=== PATIENT | female | born 2000 | race American Indian/Alaskan Native ===

== ENCOUNTER 2018-05-19 09:22 | Emergency (ER) | payer SELFPAY ==
[2018-05-19 09:52] VITALS: BP 101/59
[2018-05-19] MEDS ORDERED: DECADRON IV ONE (10:54)
--- NOTE | 2018-05-19 10:58 | Emergency Department Report ---
Blank Doc - Documentation Documentation: 17 yo female with a past medical history of strep pharyngitis in the past medical history of previous strep throat infections presents to the hospital complaining of sore throat since last night. She has voice changes and is spitting in a bag because it hurts to swallow. No complaints of difficulty breathing tightness. No fever reported. ENT exam: Patient has significant uvula and tonsillar edema with possible deviation of the uvula to the left No respiratory distress or stridor Labs, strep screen, CT with IV contrast of the neck ordered Mid-level to follow
[2018-05-19] MEDS ORDERED: TORADOL IV ONE (10:59)
[2018-05-19 11:25] LABS: Basophils % (Auto) 0.5 % (0.0-1.8); Eosinophils # (Auto) 0.2 K/mm3 (0.0-0.4); Hematocrit 36.9 % (30.3-42.9); Hemoglobin 12.5 gm/dl (10.1-14.3); Lymphocytes # (Auto) 1.7 K/mm3 (1.2-5.4); Lymphocytes % (Auto) 22.4 % (13.4-35.0); Mean Corpuscular HGB Conc 34 % (30-34); Mean Corpuscular Hemoglobin 30 pg (28-32); Mean Corpuscular Volume 87 fl (79-97); Monocytes # (Auto) 0.4 K/mm3 (0.0-0.8); Platelet Count 224 K/mm3 (140-440); Red Blood Count 4.22 M/mm3 (3.65-5.03); Red Cell Distribution Width 13.9 % (13.2-15.2)
[2018-05-19 11:38] LABS: BUN/Creatinine Ratio 40; Blood Urea Nitrogen 8 mg/dL (7-17); Hemolysis Index 25
--- NOTE | 2018-05-19 11:41 | Emergency Department Report ---
ED ENT HPI - General Chief complaint: Sore Throat Stated complaint: THROAT PAIN SOAR Time Seen by Provider: 05/19/18 10:41 Source: patient, family Mode of arrival: Ambulatory Limitations: No Limitations - History of Present Illness Initial comments: 17 yo female with a past medical history of strep pharyngitis in the past medical history of previous strep throat infections presents to the hospital complaining of sore throat since last night. She has voice changes and is spitting in a bag because it hurts to swallow. No complaints of difficulty breathing tightness. No fever reported. ENT exam: Patient has significant uvula and tonsillar edema with possible deviation of the uvula to the left No respiratory distress or stridor - Related Data Previous Rx's Medication Instructions Recorded Last Taken Type Amoxicillin/K Clav Tab [Augmentin 1 tab PO BID #20 tablet 02/24/16 Unknown Rx 875MG TAB] HYDROcodone/APAP 7.5-325 [[place]] 15 ml PO Q4HR PRN #120 oz 02/24/16 Unknown Rx Ibuprofen Oral Liqd [Motrin] 200 mg PO TID PRN #1 bottle 02/24/16 Unknown Rx Allergies Allergy/AdvReac Type Severity Reaction Status Date / Time No Known Allergies Allergy Verified 05/19/18 09:48 ED Dental HPI - General Chief complaint: Sore Throat Stated complaint: THROAT PAIN SOAR Time Seen by Provider: 05/19/18 10:41 Source: patient Mode of arrival: Ambulatory Limitations: No Limitations - Related Data Previous Rx's Medication Instructions Recorded Last Taken Type Amoxicillin/K Clav Tab [Augmentin 1 tab PO BID #20 tablet 02/24/16 Unknown Rx 875MG TAB] HYDROcodone/APAP 7.5-325 [[place]] 15 ml PO Q4HR PRN #120 oz 02/24/16 Unknown Rx Ibuprofen Oral Liqd [Motrin] 200 mg PO TID PRN #1 bottle 02/24/16 Unknown Rx Allergies Allergy/AdvReac Type Severity Reaction Status Date / Time No Known Allergies Allergy Verified 05/19/18 09:48 ED Review of Systems ROS: Stated complaint: THROAT PAIN SOAR Other details as noted in HPI ED Past Medical Hx - Past Medical History Additional medical history: Prior Tonsil pn 1 year ago - Surgical History Past Surgical History?: No - Social History Smoking Status: Never Smoker Substance Use Type: None - Medications Home Medications: Home Medications Medication Instructions Recorded Confirmed Last Taken Type Amoxicillin/K Clav Tab [Augmentin 1 tab PO BID #20 tablet 02/24/16 Unknown Rx 875MG TAB] HYDROcodone/APAP 7.5-325 [[place]] 15 ml PO Q4HR PRN #120 oz 02/24/16 Unknown Rx Ibuprofen Oral Liqd [Motrin] 200 mg PO TID PRN #1 bottle 02/24/16 Unknown Rx ED Physical Exam - General Limitations: No Limitations ED Course Vital Signs 05/19/18 09:48 Temperature 98.2 F Pulse Rate 63 Respiratory 18 Rate Blood Pressure 101/59 O2 Sat by Pulse 100 Oximetry ED Medical Decision Making - Lab Data Result diagrams: 05/19/18 11:15 05/19/18 11:15 Critical care attestation.: If time is entered above; I have spent that time in minutes in the direct care of this critically ill patient, excluding procedure time. ED Disposition Condition: Stable Referrals: PRIMARY CARE, [Primary Care Provider] - 3-5 Days
[2018-05-19] MEDS ORDERED: D50W (25GM) Vial IV ONE (11:44)
[2018-05-19] MEDS ORDERED: NACL 0.9% 1000 ML 1,000 ML IV ONE (11:44)
[2018-05-19 11:51] LABS: Calcium 5.1 mg/dL (8.4-10.2)
[2018-05-19] MEDS ORDERED: POTASSIUM CHLORIDE FEEDTUBE ONE (11:53)
[2018-05-19] MEDS ORDERED: UNASYN/NS 3 GM/100 ML 3 GM/100 ML BAG IV ONE (12:00)
[2018-05-19] MEDS ORDERED: D50W (25GM) Syringe IV NR (12:00)
[2018-05-19 12:18] LABS: Alanine Aminotransferase 10 units/L (7-56); Albumin 2.3 g/dL (3.9-5)
[2018-05-19 12:19] LABS: Bilirubin,Direct < 0.2 mg/dL (0-0.2)
[2018-05-19] MEDS ORDERED: MAGNESIUM SULFATE 2GM/50ML 2 GM/50 ML BAG IV ONE (12:34)
--- NOTE | 2018-05-19 12:55 | Cat Scan Report ---
FINAL REPORT EXAM: CT NECK W CON HISTORY: tonsillar and uvula swelling TECHNIQUE: CT of the neck was performed after the administration of intravenous contrast. Coronal and sagittal reconstructions were included. PRIORS: None. FINDINGS: Parapharyngeal spaces: Normal. Adenoids/tonsils: The adenoids and tonsils do not appear enlarged. Several small calcifications are seen within the adenoids. No tonsillar or peritonsillar abscess. There is thickening and edema of the uvula. Prevertebral soft tissues: No soft tissue swelling. Airway: Patent. Lymph nodes: No pathologically enlarged lymph nodes. Retropharynx: No abscess. Paranasal sinuses: There is a tiny right maxillary sinus mucous retention cyst. Parotid and submandibular glands: Normal attenuation. Thyroid gland: No nodules. Vasculature: Patent. Cervical spine: Intact. IMPRESSION: Edema of the uvula can be associated with allergies or may be idiopathic. No tonsillar or peritonsillar abscess.
[2018-05-19] MEDS ORDERED: POTASSIUM CHLORIDE PO ONE (13:00)
[2018-05-19 13:05] LABS: Bacteria,Urine 1+ /HPF (Negative); Bilirubin,Urine NEG (Negative); Blood,Urine NEG (Negative); Color,Urine Straw (Yellow); Protein,Urine <15 mg/dL mg/dL (Negative); Urobilinogen,Urine < 2.0 mg/dL (<2.0); WBC,Urine < 1.0 /HPF (0.0-6.0)
[2018-05-19 13:19] LABS: Alanine Aminotransferase 18 units/L (7-56); Albumin 4.6 g/dL (3.9-5); BUN/Creatinine Ratio 17; Blood Urea Nitrogen 12 mg/dL (7-17); Calcium 9.3 mg/dL (8.4-10.2); Hemolysis Index 3
--- NOTE | 2018-05-19 13:33 | Emergency Department Report ---
ED ENT HPI - General Chief complaint: Sore Throat Stated complaint: THROAT PAIN SOAR Time Seen by Provider: 05/19/18 10:41 Source: patient Mode of arrival: Ambulatory Limitations: No Limitations - History of Present Illness Initial comments: 17 yo female with a past medical history of strep pharyngitis in the past medical history of previous strep throat infections presents to the hospital complaining of sore throat since last night. She has voice changes and is spitting in a bag because it hurts to swallow. No complaints of difficulty breathing tightness. No fever reported. Pain rated of 7/10 intensity and worse with swallowing - Related Data Previous Rx's Medication Instructions Recorded Last Taken Type Amoxicillin/K Clav Tab [Augmentin 1 tab PO BID #20 tablet 02/24/16 Unknown Rx 875MG TAB] HYDROcodone/APAP 7.5-325 [[place]] 15 ml PO Q4HR PRN #120 oz 02/24/16 Unknown Rx Amoxicillin [Trimox CAP] 1,000 mg PO BID 10 Days capsule 05/19/18 Unknown Rx Ibuprofen Oral Liqd [Motrin Oral 400 mg PO TID PRN #1 bottle 05/19/18 Unknown Rx Liq 100 mg/5 ml] Prednisone [predniSONE 10 mg 10 mg PO .TAPER #1 tab.ds.pk 05/19/18 Unknown Rx (6-Day Pack, 21 Tabs)] diphenhydrAMINE [Benadryl CAP] 25 mg PO Q6HR PRN #20 capsule 05/19/18 Unknown Rx Allergies Allergy/AdvReac Type Severity Reaction Status Date / Time No Known Allergies Allergy Verified 05/19/18 09:48 ED Dental HPI - General Chief complaint: Sore Throat Stated complaint: THROAT PAIN SOAR Time Seen by Provider: 05/19/18 10:41 Source: patient Mode of arrival: Ambulatory Limitations: No Limitations - Related Data Previous Rx's Medication Instructions Recorded Last Taken Type Amoxicillin/K Clav Tab [Augmentin 1 tab PO BID #20 tablet 02/24/16 Unknown Rx 875MG TAB] HYDROcodone/APAP 7.5-325 [[place]] 15 ml PO Q4HR PRN #120 oz 02/24/16 Unknown Rx Amoxicillin [Trimox CAP] 1,000 mg PO BID 10 Days capsule 05/19/18 Unknown Rx Ibuprofen Oral Liqd [Motrin Oral 400 mg PO TID PRN #1 bottle 05/19/18 Unknown Rx Liq 100 mg/5 ml] Prednisone [predniSONE 10 mg 10 mg PO .TAPER #1 tab.ds.pk 05/19/18 Unknown Rx (6-Day Pack, 21 Tabs)] diphenhydrAMINE [Benadryl CAP] 25 mg PO Q6HR PRN #20 capsule 05/19/18 Unknown Rx Allergies Allergy/AdvReac Type Severity Reaction Status Date / Time No Known Allergies Allergy Verified 05/19/18 09:48 ED Review of Systems ROS: Stated complaint: THROAT PAIN SOAR Other details as noted in HPI Comment: All other systems reviewed and negative ED Past Medical Hx - Past Medical History Additional medical history: Prior Tonsil pn 1 year ago - Surgical History Past Surgical History?: No - Social History Smoking Status: Never Smoker Substance Use Type: None - Medications Home Medications: Home Medications Medication Instructions Recorded Confirmed Last Taken Type Amoxicillin/K Clav Tab [Augmentin 1 tab PO BID #20 tablet 02/24/16 Unknown Rx 875MG TAB] HYDROcodone/APAP 7.5-325 [[place]] 15 ml PO Q4HR PRN #120 oz 02/24/16 Unknown Rx Amoxicillin [Trimox CAP] 1,000 mg PO BID 10 Days capsule 05/19/18 Unknown Rx Ibuprofen Oral Liqd [Motrin Oral 400 mg PO TID PRN #1 bottle 05/19/18 Unknown Rx Liq 100 mg/5 ml] Prednisone [predniSONE 10 mg 10 mg PO .TAPER #1 tab.ds.pk 05/19/18 Unknown Rx (6-Day Pack, 21 Tabs)] diphenhydrAMINE [Benadryl CAP] 25 mg PO Q6HR PRN #20 capsule 05/19/18 Unknown Rx ED Physical Exam - General Limitations: No Limitations - Other Other exam information: General: No limitations, patient is alert in no acute distress Head exam: Atraumatic, normocephalic Eyes exam: Normal appearance ENT: Moist mucous membrane, uvula edema, possible deviation to the left. No pharyngeal exudates or stridor Neck exam: Normal inspection, full range of motion, no meningismus nontender Respiratory exam: Clear to auscultation bilateral, no wheezes, rales, crackles Cardiovascular: Normal rate and rhythm, normal heart sounds Abdomen: Soft, nondistended, and nontender, with normal bowel sounds, no rebound, or guarding Extremity: Full range of motion normal inspection no deformity Back: Normal Inspection, full range of motion, no tenderness Neurologic: Alert, oriented x3, cranial nerves intact, no motor or sensory deficit Psychiatric: normal affect, normal mood Skin: Warm, dry, intact ED Course Vital Signs 05/19/18 09:48 Temperature 98.2 F Pulse Rate 63 Respiratory 18 Rate Blood Pressure 101/59 O2 Sat by Pulse 100 Oximetry ED Medical Decision Making - Lab Data Result diagrams: 05/19/18 11:15 05/19/18 12:47 Lab Results 05/19/18 05/19/18 05/19/18 Range/Units 10:54 11:15 11:15 WBC 7.6 (4.5-11.0) K/mm3 RBC 4.22 (3.65-5.03) M/mm3 Hgb 12.5 (10.1-14.3) gm/dl Hct 36.9 (30.3-42.9) % MCV 87 (79-97) fl MCH 30 (28-32) pg MCHC 34 (30-34) % RDW 13.9 (13.2-15.2) % Plt Count 224 (140-440) K/mm3 Lymph % (Auto) 22.4 (13.4-35.0) % [place] % (Auto) 5.0 (0.0-7.3) % Eos % (Auto) 3.0 (0.0-4.3) % Baso % (Auto) 0.5 (0.0-1.8) % Lymph # 1.7 (1.2-5.4) K/mm3 [place] # 0.4 (0.0-0.8) K/mm3 Eos # 0.2 (0.0-0.4) K/mm3 Baso # 0.0 (0.0-0.1) K/mm3 Seg Neutrophils % 69.1 (40.0-70.0) % Seg Neutrophils # 5.2 (1.8-7.7) K/mm3 VBG pH (7.320-7.420) Sodium 145 (137-145) mmol/L Potassium 2.4 L* (3.6-5.0) mmol/L Chloride 123.3 H (98-107) mmol/L Carbon Dioxide 13 L (22-30) mmol/L Anion Gap 11 mmol/L BUN 8 (7-17) mg/dL Creatinine 0.2 L (0.7-1.2) mg/dL Estimated GFR > 60 ml/min BUN/Creatinine Ratio 40 % Glucose 51 L (65-100) mg/dL Lactic Acid (0.7-2.0) mmol/L Calcium 5.1 L* (8.4-10.2) mg/dL Magnesium (1.7-2.3) mg/dL Total Bilirubin (0.1-1.2) mg/dL Direct Bilirubin (0-0.2) mg/dL Indirect Bilirubin mg/dL AST (5-40) units/L ALT (7-56) units/L Alkaline Phosphatase (35-129) units/L Total Protein (6.3-8.2) g/dL Albumin (3.9-5) g/dL Albumin/Globulin Ratio % HCG, Qual (Negative) Urine Color (Yellow) Urine Turbidity (Clear) Urine pH (5.0-7.0) Ur Specific [facility] (1.003-1.030) Urine Protein (Negative) mg/dL Urine Glucose (UA) (Negative) mg/dL Urine Ketones (Negative) mg/dL Urine Blood (Negative) Urine Nitrite (Negative) Urine Bilirubin (Negative) Urine Urobilinogen (<2.0) mg/dL Ur Leukocyte Esterase (Negative) Urine WBC (Auto) (0.0-6.0) /HPF Urine RBC (Auto) (0.0-6.0) /HPF Urine Bacteria (Auto) (Negative) /HPF Group A Strep Rapid Negative (Negative) 05/19/18 05/19/18 05/19/18 Range/Units 11:15 11:15 11:15 WBC (4.5-11.0) K/mm3 RBC (3.65-5.03) M/mm3 Hgb (10.1-14.3) gm/dl Hct (30.3-42.9) % MCV (79-97) fl MCH (28-32) pg MCHC (30-34) % RDW (13.2-15.2) % Plt Count (140-440) K/mm3 Lymph % (Auto) (13.4-35.0) % [place] % (Auto) (0.0-7.3) % Eos % (Auto) (0.0-4.3) % Baso % (Auto) (0.0-1.8) % Lymph # (1.2-5.4) K/mm3 [place] # (0.0-0.8) K/mm3 Eos # (0.0-0.4) K/mm3 Baso # (0.0-0.1) K/mm3 Seg Neutrophils % (40.0-70.0) % Seg Neutrophils # (1.8-7.7) K/mm3 VBG pH (7.320-7.420) Sodium (137-145) mmol/L Potassium (3.6-5.0) mmol/L Chloride (98-107) mmol/L Carbon Dioxide (22-30) mmol/L Anion Gap mmol/L BUN (7-17) mg/dL Creatinine (0.7-1.2) mg/dL Estimated GFR ml/min BUN/Creatinine Ratio % Glucose (65-100) mg/dL Lactic Acid (0.7-2.0) mmol/L Calcium (8.4-10.2) mg/dL Magnesium 1.20 L (1.7-2.3) mg/dL Total Bilirubin 0.20 (0.1-1.2) mg/dL Direct Bilirubin < 0.2 (0-0.2) mg/dL Indirect Bilirubin 0.0 mg/dL AST 16 (5-40) units/L ALT 10 (7-56) units/L Alkaline Phosphatase 31 L (35-129) units/L Total Protein 4.1 L (6.3-8.2) g/dL Albumin 2.3 L (3.9-5) g/dL Albumin/Globulin Ratio 1.3 % HCG, Qual Negative (Negative) Urine Color (Yellow) Urine Turbidity (Clear) Urine pH (5.0-7.0) Ur Specific [facility] (1.003-1.030) Urine Protein (Negative) mg/dL Urine Glucose (UA) (Negative) mg/dL Urine Ketones (Negative) mg/dL Urine Blood (Negative) Urine Nitrite (Negative) Urine Bilirubin (Negative) Urine Urobilinogen (<2.0) mg/dL Ur Leukocyte Esterase (Negative) Urine WBC (Auto) (0.0-6.0) /HPF Urine RBC (Auto) (0.0-6.0) /HPF Urine Bacteria (Auto) (Negative) /HPF Group A Strep Rapid (Negative) 05/19/18 05/19/18 05/19/18 Range/Units 12:47 12:47 12:47 WBC (4.5-11.0) K/mm3 RBC (3.65-5.03) M/mm3 Hgb (10.1-14.3) gm/dl Hct (30.3-42.9) % MCV (79-97) fl MCH (28-32) pg MCHC (30-34) % RDW (13.2-15.2) % Plt Count (140-440) K/mm3 Lymph % (Auto) (13.4-35.0) % [place] % (Auto) (0.0-7.3) % Eos % (Auto) (0.0-4.3) % Baso % (Auto) (0.0-1.8) % Lymph # (1.2-5.4) K/mm3 [place] # (0.0-0.8) K/mm3 Eos # (0.0-0.4) K/mm3 Baso # (0.0-0.1) K/mm3 Seg Neutrophils % (40.0-70.0) % Seg Neutrophils # (1.8-7.7) K/mm3 VBG pH 7.301 L (7.320-7.420) Sodium 135 L D (137-145) mmol/L Potassium 4.0 D (3.6-5.0) mmol/L Chloride 99.5 (98-107) mmol/L Carbon Dioxide 23 D (22-30) mmol/L Anion Gap 17 mmol/L BUN 12 (7-17) mg/dL Creatinine 0.7 D (0.7-1.2) mg/dL Estimated GFR > 60 ml/min BUN/Creatinine Ratio 17 % Glucose 97 (65-100) mg/dL Lactic Acid 0.60 L (0.7-2.0) mmol/L Calcium 9.3 D (8.4-10.2) mg/dL Magnesium (1.7-2.3) mg/dL Total Bilirubin 0.40 (0.1-1.2) mg/dL Direct Bilirubin (0-0.2) mg/dL Indirect Bilirubin mg/dL AST 25 (5-40) units/L ALT 18 (7-56) units/L Alkaline Phosphatase 60 (35-129) units/L Total Protein 7.4 D (6.3-8.2) g/dL Albumin 4.6 (3.9-5) g/dL Albumin/Globulin Ratio 1.6 % HCG, Qual (Negative) Urine Color (Yellow) Urine Turbidity (Clear) Urine pH (5.0-7.0) Ur Specific [facility] (1.003-1.030) Urine Protein (Negative) mg/dL Urine Glucose (UA) (Negative) mg/dL Urine Ketones (Negative) mg/dL Urine Blood (Negative) Urine Nitrite (Negative) Urine Bilirubin (Negative) Urine Urobilinogen (<2.0) mg/dL Ur Leukocyte Esterase (Negative) Urine WBC (Auto) (0.0-6.0) /HPF Urine RBC (Auto) (0.0-6.0) /HPF Urine Bacteria (Auto) (Negative) /HPF Group A Strep Rapid (Negative) 05/19/18 Range/Units Unknown WBC (4.5-11.0) K/mm3 RBC (3.65-5.03) M/mm3 Hgb (10.1-14.3) gm/dl Hct (30.3-42.9) % MCV (79-97) fl MCH (28-32) pg MCHC (30-34) % RDW (13.2-15.2) % Plt Count (140-440) K/mm3 Lymph % (Auto) (13.4-35.0) % [place] % (Auto) (0.0-7.3) % Eos % (Auto) (0.0-4.3) % Baso % (Auto) (0.0-1.8) % Lymph # (1.2-5.4) K/mm3 [place] # (0.0-0.8) K/mm3 Eos # (0.0-0.4) K/mm3 Baso # (0.0-0.1) K/mm3 Seg Neutrophils % (40.0-70.0) % Seg Neutrophils # (1.8-7.7) K/mm3 VBG pH (7.320-7.420) Sodium (137-145) mmol/L Potassium (3.6-5.0) mmol/L Chloride (98-107) mmol/L Carbon Dioxide (22-30) mmol/L Anion Gap mmol/L BUN (7-17) mg/dL Creatinine (0.7-1.2) mg/dL Estimated GFR ml/min BUN/Creatinine Ratio % Glucose (65-100) mg/dL Lactic Acid (0.7-2.0) mmol/L Calcium (8.4-10.2) mg/dL Magnesium (1.7-2.3) mg/dL Total Bilirubin (0.1-1.2) mg/dL Direct Bilirubin (0-0.2) mg/dL Indirect Bilirubin mg/dL AST (5-40) units/L ALT (7-56) units/L Alkaline Phosphatase (35-129) units/L Total Protein (6.3-8.2) g/dL Albumin (3.9-5) g/dL Albumin/Globulin Ratio % HCG, Qual (Negative) Urine Color Straw (Yellow) Urine Turbidity Clear (Clear) Urine pH 6.0 (5.0-7.0) Ur Specific [facility] 1.034 H (1.003-1.030) Urine Protein <15 mg/dl (Negative) mg/dL Urine Glucose (UA) Neg (Negative) mg/dL Urine Ketones Neg (Negative) mg/dL Urine Blood Neg (Negative) Urine Nitrite Neg (Negative) Urine Bilirubin Neg (Negative) Urine Urobilinogen < 2.0 (<2.0) mg/dL Ur Leukocyte Esterase Neg (Negative) Urine WBC (Auto) < 1.0 (0.0-6.0) /HPF Urine RBC (Auto) 1.0 (0.0-6.0) /HPF Urine Bacteria (Auto) 1+ (Negative) /HPF Group A Strep Rapid (Negative) - Radiology Data Radiology results: report reviewed FINAL REPORT EXAM: CT NECK W CON HISTORY: tonsillar and uvula swelling TECHNIQUE: CT of the neck was performed after the administration of intravenous contrast. Coronal and sagittal reconstructions were included. PRIORS: None. FINDINGS: Parapharyngeal spaces: Normal. Adenoids/tonsils: The adenoids and tonsils do not appear enlarged. Several small calcifications are seen within the adenoids. No tonsillar or peritonsillar abscess. There is thickening and edema of the uvula. Prevertebral soft tissues: No soft tissue swelling. Airway: Patent. Lymph nodes: No pathologically enlarged lymph nodes. Retropharynx: No abscess. Paranasal sinuses: There is a tiny right maxillary sinus mucous retention cyst. Parotid and submandibular glands: Normal attenuation. Thyroid gland: No nodules. Vasculature: Patent. Cervical spine: Intact. IMPRESSION: Edema of the uvula can be associated with allergies or may be idiopathic. No tonsillar or peritonsillar abscess. - Medical Decision Making Patient is initial CMP shows abnormalities that do not exist on repeat blood draw. I suspected these values were erroneous. Repeat labs show improved labs including electrolytes and normal bicarbonate. No signs of sepsis or septic shock at this time. No abscess identified on CT. Patient treated with Decadron , Unasyn, normal saline, and Toradol. Benadryl additionally order to cover for possible allergic cause. Will be discharged on antibiotics, pain medication, Benadryl, and steroids. Outpatient follow-up advised Strep screen negative repeat mag normal therefore cancelled - Differential Diagnosis pharyngeal abscess, pharyngitis, strep throat, uvulitis Critical Care Time: No Critical care attestation.: If time is entered above; I have spent that time in minutes in the direct care of this critically ill patient, excluding procedure time. ED Disposition Clinical Impression: Uvulitis Disposition: [id number] TO HOME OR SELFCARE Is pt being admited?: No Does the pt Need Aspirin: No Condition: Stable Instructions: Uvulitis (ED) Additional Instructions: Take the medication as prescribed. Follow up with your doctor or the doctors provided. Return if symptoms worsen as indicated by your discharge instructions Prescriptions: Amoxicillin [Trimox CAP] 1,000 mg PO BID 10 Days capsule diphenhydrAMINE [Benadryl CAP] 25 mg PO Q6HR PRN #20 capsule PRN Reason: Allergy Symptoms Ibuprofen Oral Liqd [Motrin Oral Liq 100 mg/5 ml] 400 mg PO TID PRN #1 bottle PRN Reason: Pain, Moderate (4-6) Prednisone [predniSONE 10 mg (6-Day Pack, 21 Tabs)] 10 mg PO .TAPER #1 tab.ds.pk Referrals: PRIMARY CARE, [Primary Care Provider] - 3-5 Days THOR ROSE MD [Staff Physician] - 3-5 Days (primary care doctor ) BENEDICTO LACKEY MD [Staff Physician] - 3-5 Days (ent doctor ) Time of Disposition: 14:09
[2018-05-19] MEDS ORDERED: BENADRYL IV ONE (13:38)
== END 2018-05-19 14:33 | disposition home or self-care (01) ==
LOC: ED 09:22
DX: K12.2 Cellulitis and abscess of mouth (principal)
CPT/HCPCS: 36415; 70491; 80048; 80053; 80074; 81001; 82140; 82805; 83735; 84703; 85025; 87116; 87430; 96365; 96375; 99284; J0295; J1100; J1200; J1885; J3475; J7030; Q9967

== ENCOUNTER 2019-02-04 14:50 | Emergency (ER) | payer SELFPAY ==
--- NOTE | 2019-02-04 15:38 | Emergency Department Report ---
Blank Doc - Documentation Documentation: This is a 18-year-old female that presents with vaginal ulcer and vaginal disc harge. This initial assessment/diagnostic orders/clinical plan/treatment(s) is/are subject to change based on patient's health status, clinical progression and re- assessment by fellow clinical providers in the ED. Further treatment and workup at subsequent clinical providers discretion. Patient/guardians urged not to elope from the ED as their condition may be serious if not clinically assessed and managed. Initial orders include: 1- Patient sent to [facility] for further evaluation and treatment 2- pelvic exam 3- UA 4- wet prep/GC swabs
[2019-02-04 15:39] VITALS: BP 102/55
[2019-02-04 16:56] LABS: HCG Qualitative,Urine Positive (Negative)
[2019-02-04 16:59] LABS: Bacteria,Urine 2+ /HPF (Negative); Bilirubin,Urine NEG (Negative); Blood,Urine SM (Negative); Color,Urine Yellow (Yellow); Mucus,Urine 1+ /HPF; Urobilinogen,Urine < 2.0 mg/dL (<2.0)
[2019-02-04 18:36] LABS: Basophils % (Auto) 0.1 % (0.0-1.8); Eosinophils # (Auto) 0.1 K/mm3 (0.0-0.4); Hematocrit 36.7 % (30.3-42.9); Hemoglobin 13.2 gm/dl (10.1-14.3); Lymphocytes # (Auto) 1.3 K/mm3 (1.2-5.4); Lymphocytes % (Auto) 15.2 % (13.4-35.0); Mean Corpuscular HGB Conc 36 % (30-34); Mean Corpuscular Volume 86 fl (79-97); Monocytes # (Auto) 0.4 K/mm3 (0.0-0.8); Monocytes % (Auto) 4.1 % (0.0-7.3); Platelet Count 259 K/mm3 (140-440); Red Blood Count 4.27 M/mm3 (3.65-5.03); Red Cell Distribution Width 13.2 % (13.2-15.2)
[2019-02-04 18:50] LABS: BUN/Creatinine Ratio 17; Blood Urea Nitrogen 10 mg/dL (7-17); Calcium 9.6 mg/dL (8.4-10.2); Hemolysis Index 0
[2019-02-04] MEDS ORDERED: ROCEPHIN IM ONE (19:16)
[2019-02-04] MEDS ORDERED: ZITHROMAX PO ONE (19:16)
[2019-02-04] MEDS ORDERED: XYLOCAINE 1% MPF 5 mL INFILTRATI ONE (19:17)
[2019-02-04] MEDS ORDERED: FLAGYL PO ONE (19:17)
--- NOTE | 2019-02-04 19:23 | Emergency Department Report ---
ED Female HPI - General Chief complaint: Urogenital-Female Stated complaint: VAGINAL ISSUES Time Seen by Provider: 02/04/19 15:36 Source: patient Mode of arrival: Ambulatory Limitations: No Limitations - History of Present Illness Initial comments: This is a 18-year-old female that presents with vaginal ulcer and vaginal discharge. MD Complaint: vaginal discharge, possible STD Onset/Timin -: week(s) Location: labia, perineum Radiation: non-radiating Severity: moderate Severity scale (0 -10): 5 Quality: burning, other (itching) Consistency: constant Improves with: none Worsens with: urination, intercourse Are you Now?: Yes Associated Symptoms: vaginal discharge, dysuria - Related Data Sexually active: Yes : 0 Para: 0 A: 0 Previous Rx's Medication Instructions Recorded Last Taken Type Amoxicillin/K Clav Tab [Augmentin 1 tab PO BID #20 tablet 02/24/16 Unknown Rx 875MG TAB] HYDROcodone/APAP 7.5-325 [[place]] 15 ml PO Q4HR PRN #120 oz 02/24/16 Unknown Rx Amoxicillin [Trimox CAP] 1,000 mg PO BID 10 Days capsule 05/19/18 Unknown Rx Ibuprofen Oral Liqd [Motrin Oral 400 mg PO TID PRN #1 bottle 05/19/18 Unknown Rx Liq 100 mg/5 ml] Prednisone [predniSONE 10 mg 10 mg PO .TAPER #1 tab.ds.pk 05/19/18 Unknown Rx (6-Day Pack, 21 Tabs)] diphenhydrAMINE [Benadryl CAP] 25 mg PO Q6HR PRN #20 capsule 05/19/18 Unknown Rx Acyclovir [Zovirax Cap] 400 mg PO TID 10 Days #30 cap 02/04/19 Unknown Rx Nitrofurantoin Monohyd/M-Cryst 100 mg PO BID 7 Days #14 capsule 02/04/19 Unknown Rx [Macrobid 100 mg Capsule] Allergies Allergy/AdvReac Type Severity Reaction Status Date / Time No Known Allergies Allergy Verified 05/19/18 09:48 ED Review of Systems ROS: Stated complaint: VAGINAL ISSUES Other details as noted in HPI Constitutional: denies: chills, fever Eyes: denies: eye pain, eye discharge, vision change ENT: denies: ear pain, throat pain Respiratory: denies: cough, shortness of breath, wheezing Cardiovascular: denies: chest pain, palpitations Endocrine: no symptoms reported Gastrointestinal: denies: abdominal pain, nausea, diarrhea Genitourinary: urgency, dysuria, frequency, discharge, dyspareunia Musculoskeletal: denies: back pain, joint swelling, arthralgia Skin: denies: rash, lesions Neurological: denies: headache, weakness, paresthesias Psychiatric: denies: anxiety, depression Hematological/Lymphatic: denies: easy bleeding, easy bruising ED Past Medical Hx - Past Medical History Previous Medical History?: No Additional medical history: Prior Tonsil pn 1 year ago - Surgical History Past Surgical History?: No - Social History Smoking Status: Never Smoker Substance Use Type: Alcohol, Marijuana - Medications Home Medications: Home Medications Medication Instructions Recorded Confirmed Last Taken Type Amoxicillin/K Clav Tab [Augmentin 1 tab PO BID #20 tablet 02/24/16 Unknown Rx 875MG TAB] HYDROcodone/APAP 7.5-325 [[place]] 15 ml PO Q4HR PRN #120 oz 02/24/16 Unknown Rx Amoxicillin [Trimox CAP] 1,000 mg PO BID 10 Days capsule 05/19/18 Unknown Rx Ibuprofen Oral Liqd [Motrin Oral 400 mg PO TID PRN #1 bottle 05/19/18 Unknown Rx Liq 100 mg/5 ml] Prednisone [predniSONE 10 mg 10 mg PO .TAPER #1 tab.ds.pk 05/19/18 Unknown Rx (6-Day Pack, 21 Tabs)] diphenhydrAMINE [Benadryl CAP] 25 mg PO Q6HR PRN #20 capsule 05/19/18 Unknown Rx Acyclovir [Zovirax Cap] 400 mg PO TID 10 Days #30 cap 02/04/19 Unknown Rx Nitrofurantoin Monohyd/M-Cryst 100 mg PO BID 7 Days #14 capsule 02/04/19 Unknown Rx [Macrobid 100 mg Capsule] ED Physical Exam - General Limitations: No Limitations General appearance: alert, in no apparent distress - Head Head exam: Present: atraumatic, normocephalic - Eye Eye exam: Present: normal appearance, PERRL, EOMI Pupils: Present: normal accommodation - ENT ENT exam: Present: mucous membranes moist - Neck Neck exam: Present: normal inspection, full ROM. Absent: tenderness, lymphadenopathy, thyromegaly - Respiratory Respiratory exam: Present: normal lung sounds bilaterally. Absent: respiratory distress, wheezes, stridor, chest wall tenderness - Cardiovascular Cardiovascular Exam: Present: regular rate, normal rhythm, normal heart sounds. Absent: systolic murmur, diastolic murmur, rubs, gallop - GI/Abdominal GI/Abdominal exam: Present: soft, normal bowel sounds. Absent: tenderness, guarding, rebound, rigid, bruit, hernia - Rectal Rectal exam: Present: deferred - External exam: Present: erythema, lesions (yelloe l\lesion painful to touich) Speculum exam: Present: erythema, vaginal discharge, cervical discharge. Absent: vaginal bleeding, foreign body, tissue, laceration Bi-manual exam: Absent: normal bi-manual exam, cervical motion tendernes, adnexal tenderness - Extremities Exam Extremities exam: Present: normal inspection, full ROM, normal capillary refill. Absent: tenderness, pedal edema, joint swelling, calf tenderness - Back Exam Back exam: Present: normal inspection, full ROM. Absent: tenderness, CVA tenderness (R), CVA tenderness (L), muscle spasm, paraspinal tenderness, vertebral tenderness, rash noted - Neurological Exam Neurological exam: Present: alert, oriented X3, CN II-XII intact, normal gait - Psychiatric Psychiatric exam: Present: normal affect, normal mood - Skin Skin exam: Present: warm, dry, intact, normal color. Absent: rash ED Course Vital Signs 02/04/19 15:36 Temperature 98.7 F Pulse Rate 96 H Respiratory 16 Rate Blood Pressure 102/55 O2 Sat by Pulse 98 Oximetry ED Medical Decision Making - Lab Data Result diagrams: 02/04/19 18:09 02/04/19 18:09 Labs 02/04/19 02/04/19 02/04/19 16:32 18:09 18:09 WBC 8.6 RBC 4.27 Hgb 13.2 Hct 36.7 MCV 86 MCH 31 MCHC 36 H RDW 13.2 Plt Count 259 Lymph % (Auto) 15.2 [place] % (Auto) 4.1 Eos % (Auto) 1.0 Baso % (Auto) 0.1 Lymph # 1.3 [place] # 0.4 Eos # 0.1 Baso # 0.0 Seg Neutrophils % 79.6 H Seg Neutrophils # 6.8 Sodium 132 L Potassium 3.6 Chloride 97.4 L Carbon Dioxide 19 L Anion Gap 19 BUN 10 Creatinine 0.6 L Estimated GFR > 60 BUN/Creatinine Ratio 17 Glucose 66 Calcium 9.6 HCG, Quant Urine Color Yellow Urine Turbidity Cloudy Urine pH 5.0 Ur Specific [place] 1.029 Urine Protein 30 mg/dl Urine Glucose (UA) Neg Urine Ketones 80 Urine Blood Sm Urine Nitrite Neg Ur Reducing Substances Not Reportable Urine Bilirubin Neg Urine Ictotest Not Reportable Urine Urobilinogen < 2.0 Ur Leukocyte Esterase Lg Urine WBC (Auto) 26.0 H Urine RBC (Auto) 11.0 U Epithel Cells (Auto) 13.0 Urine Bacteria (Auto) 2+ Urine Mucus 1+ Urine HCG, Qual Positive A 02/04/19 18:09 WBC RBC Hgb Hct MCV MCH MCHC RDW Plt Count Lymph % (Auto) [place] % (Auto) Eos % (Auto) Baso % (Auto) Lymph # [place] # Eos # Baso # Seg Neutrophils % Seg Neutrophils # Sodium Potassium Chloride Carbon Dioxide Anion Gap BUN Creatinine Estimated GFR BUN/Creatinine Ratio Glucose Calcium HCG, Quant 55020 H Urine Color Urine Turbidity Urine pH Ur Specific [place] Urine Protein Urine Glucose (UA) Urine Ketones Urine Blood Urine Nitrite Ur Reducing Substances Urine Bilirubin Urine Ictotest Urine Urobilinogen Ur Leukocyte Esterase Urine WBC (Auto) Urine RBC (Auto) U Epithel Cells (Auto) Urine Bacteria (Auto) Urine Mucus Urine HCG, Qual - Medical Decision Making Patient is 12 weeks no abdominal pain no nausea vomiting no vaginal bleeding Exam Positive for Cervical Discharge Green labia with ulcers x 7 yellow center painf to touch, erythema, wet prep pos for trich , pt advised of STD status pt is 12 weeks and 5 days , will tx for GC/Ch, Trich, Genital Herpes, pt will follow up with OBGYN tomorrow for HIV, HSV, and Syphilis screeing, pt verbalized agreement and understandig of same, pt is tolerating po intake no n/v no fever no chills, no CMT no likely PID, pt will follow up with OBGYN tomorrow, pt dc;d to home in stable condition at this time. Critical care attestation.: If time is entered above; I have spent that time in minutes in the direct care of this critically ill patient, excluding procedure time. ED Disposition Clinical Impression: Exposure to STD, Positive test Disposition: DC TO HOME OR SELFCARE Is pt being admited?: No Does the pt Need Aspirin: No Condition: Stable Instructions: Trichomoniasis (ED), Sexually Transmitted Diseases (ED), Genital Herpes Simplex (ED) Prescriptions: Nitrofurantoin Monohyd/M-Cryst [Macrobid 100 mg Capsule] 100 mg PO BID 7 Days #14 capsule Acyclovir [Zovirax Cap] 400 mg PO TID 10 Days #30 cap Referrals: PORTIA PERSON MD [Primary Care Provider] - 3-5 Days SONALI EDMONDS MD [Staff Physician] - 3-5 Days Forms: Work/School Release Form(ED) Time of Disposition: 19:32
== END 2019-02-04 20:05 | disposition home or self-care (01) ==
LOC: ED 14:50
DX: O26.891 Other specified pregnancy related conditions, first trimester (principal); O99.89 Other specified diseases and conditions complicating pregnancy, childbirth and the puerperium; A64 Unspecified sexually transmitted disease; Z3A.12 12 weeks gestation of pregnancy
CPT/HCPCS: 36415; 80048; 81001; 81025; 84702; 85025; 87210; 87591; 96372; 99284; J0696

== ENCOUNTER 2019-08-15 10:20 | Inpatient (IN) | payer MEDICAID ==
[2019-08-15 12:42] LABS: Basophils % (Auto) 0.3 % (0.0-1.8); Eosinophils # (Auto) 0.1 K/mm3 (0.0-0.4); Eosinophils % (Auto) 0.9 % (0.0-4.3); Hematocrit 35.5 % (30.3-42.9); Hemoglobin 12.1 gm/dl (10.1-14.3); Lymphocytes # (Auto) 1.3 K/mm3 (1.2-5.4); Lymphocytes % (Auto) 13.9 % (13.4-35.0); Mean Corpuscular HGB Conc 34 % (30-34); Mean Corpuscular Volume 88 fl (79-97); Monocytes # (Auto) 0.7 K/mm3 (0.0-0.8); Monocytes % (Auto) 7.2 % (0.0-7.3); Platelet Count 170 K/mm3 (140-440); Red Blood Count 4.06 M/mm3 (3.65-5.03); Red Cell Distribution Width 13.4 % (13.2-15.2)
--- NOTE | 2019-08-15 13:28 | Ultrasound Report ---
ULTRASOUND OBSTETRIC, limited Indication: EFW Findings: There is a single intrauterine . BPD = 9.33 = 38weeks, 0 day(s). Head circumference = 34.1 = 39weeks, 2 day(s). Abdominal circumference = 34.83= 38weeks, 5 day(s). Femur length = 7.40 = 37weeks, 6 day(s). Overall estimated sonographic age = 38weeks, 2 day(s). heart rate is 145beats per minute. Estimated weight is 3512rams position is cephalic. Amniotic fluid volume is 9.7 cm and is within normal limits. Impression: 1. Single living intrauterine with estimated sonographic age of 38 weeks, 2 day(s). 2. No sonographic abnormality identified. Biophysical profile INDICATION: well-being COMPARISON: None FINDINGS: breathing movement: 2/2 movement: 2/2 posture and tone: 2/2 Qualitative amniotic fluid volume: 2/2 IMPRESSION: Total score for biophysical profile is 8/8 heart rate is 141 bpm Signer Name: Alejandro Sepulveda MD Signed: 08/15/2019 1:23 PM Workstation Name: [id number]
[2019-08-15] MEDS ORDERED: ePHEDrine SULFATE 50 MG/1 ML INJ IV PRN (13:49)
[2019-08-15] MEDS ORDERED: DINOPROSTONE 10 MG VAG SUPP VG ONE (13:49)
[2019-08-15] MEDS ORDERED: PROMETHAZINE 25 MG TAB PO PRN ×2 (13:49→18:35)
[2019-08-15] MEDS ORDERED: LIDOCAINE (2%) 20 MG/1 ML VIAL 20 ML MDV INFILTRATI ONE (13:49)
[2019-08-15] MEDS ORDERED: AMPICILLIN/NS 2 GM/100 ML 2 GM/100 ML BAG IV ONE ×2 (13:49→16:54)
[2019-08-15] MEDS ORDERED: ONDANSETRON 4 MG/2 ML INJ IV PRN ×2 (13:49→18:35)
[2019-08-15] MEDS ORDERED: TERBUTALINE 1 MG/1 ML INJ IVP PRN (13:49)
[2019-08-15] MEDS ORDERED: NALOXONE 0.4 MG/1 ML INJ IV PRN ×3 (13:49→19:52)
[2019-08-15] MEDS ORDERED: MINERAL OIL 30 ML ORAL LIQD PO PRN (13:49)
[2019-08-15] MEDS ORDERED: fentaNYL 100 MCG/2 ML INJ IV PRN (13:49)
[2019-08-15] MEDS ORDERED: BUTORPHANOL 2 MG/1 ML INJ IV PRN (13:49)
[2019-08-15] MEDS ORDERED: TERBUTALINE 1 MG/1 ML INJ SUB-Q PRN (13:49)
--- NOTE | 2019-08-15 13:52 | History and Physical Report ---
History of Present Illness Date of examination: 08/15/19 Date of admission: 08/15/19 Chief complaint: Sent from office for variable deceleration on NST History of present illness: Pt is a 18 yo at 40.2 weeks EGA who presents from the office for variable deceleration on NST. She reports painful contractions q7-10 minutes, positive movement, and denies LOF/vaginal bleeding. She has received care with [facility] safety officer since 30 weeks EGA, co-managed with [facility] for size/dates discrepancy. Her has been complicated by late care and HSV outbreak. She is Rh negative and GBS positive. 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 ) Family/Genetic History: diabetes (MGM) Social history: no significant social history - Obstetrical History Expected Date of Delivery: 08/13/19 Actual Gestation: 40 Week(s) 2 Day(s) : 1 Para: 0 Hx # Term Pregnancies: 0 Number of Pregnancies: 0 Spontaneous Abortions: 0 Induced : 0 Medications and Allergies Allergies Allergy/AdvReac Type Severity Reaction Status Date / Time No Known Allergies Allergy Verified 05/19/18 09:48 Home Medications Medication Instructions Recorded Confirmed Last Taken Type Amoxicillin/K Clav Tab [Augmentin 1 tab PO BID #20 tablet 02/24/16 Unknown Rx 875MG TAB] HYDROcodone/APAP 7.5-325 [[place]] 15 ml PO Q4HR PRN #120 oz 02/24/16 Unknown Rx Amoxicillin [Trimox CAP] 1,000 mg PO BID 10 Days capsule 05/19/18 Unknown Rx Ibuprofen Oral Liqd [Motrin Oral 400 mg PO TID PRN #1 bottle 05/19/18 Unknown Rx Liq 100 mg/5 ml] Prednisone [predniSONE 10 mg 10 mg PO .TAPER #1 tab.ds.pk 05/19/18 Unknown Rx (6-Day Pack, 21 Tabs)] diphenhydrAMINE [Benadryl CAP] 25 mg PO Q6HR PRN #20 capsule 05/19/18 Unknown Rx Acyclovir [Zovirax Cap] 400 mg PO TID 10 Days #30 cap 02/04/19 Unknown Rx Nitrofurantoin Monohyd/M-Cryst 100 mg PO BID 7 Days #14 capsule 02/04/19 Unknown Rx [Macrobid 100 mg Capsule] Review of Systems All systems: negative Genitourinary: contractions, no vaginal bleeding, no vaginal discharge, no leakage of fluid - Vital Signs Vital signs: Vital Signs Pulse BP 86 105/65 08/15/19 11:05 08/15/19 11:05 Temp Pulse Resp BP Pulse Ox 97.9 F 86 16 105/65 08/15/19 11:22 08/15/19 11:05 08/15/19 11:22 08/15/19 11:05 - Physical Exam Lungs: Positive: Normal air movement Abdomen: Positive: soft Uterus: Positive: enlarged Extremities: Positive: normal - Obstetrical FHR: category 2 (recurrent early decelerations. One late deceleration noted) Uterine Contraction Monitor Mode: External Cervical Dilatation: 1 Cervical Effacement Percentage: 70 station: -3 Uterine Contraction Frequency (min): 10 Uterine Contraction Pattern: Irregular Results Result Diagrams: 08/15/19 12:11 Abnormal lab results 08/15/19 Range/Units 12:11 Seg Neutrophils % 77.7 H (40.0-70.0) % All other labs normal. Assessment and Plan 18 yo at 40.2 weeks EGA Category II FHT Early labor GBS positive Rh negative HSV positive with outbreak this . No current outbreak or prodrome. Admit to L&D If no resolution in FHT, proceed with primary LTCS Commence IOL if reassuring FHT Antibiotic prophylaxis Pain relief as requested
[2019-08-15] MEDS ORDERED: OXYTOCIN 20 UNIT/1000ML DRIP 20 UNITS/1,000 ML BAG IV SCH ×3 (14:00→20:00)
[2019-08-15] MEDS ORDERED: LACTATED RINGERS 1,000 ML IV SCH ×2 (14:00→19:00)
[2019-08-15] MEDS ORDERED: OXYTOCIN DRIP 30 UNITS/500 ML BAG IV SCH ×2 (14:00)
[2019-08-15 17:18] LABS: Hematocrit 33.2 % (30.3-42.9); Hemoglobin 11.5 gm/dl (10.1-14.3); Mean Corpuscular HGB Conc 35 % (30-34); Mean Corpuscular Volume 88 fl (79-97); Platelet Count 166 K/mm3 (140-440); Red Cell Distribution Width 13.4 % (13.2-15.2)
[2019-08-15] MEDS ORDERED: AMPICILLIN/NS 1 GM/50 ML 1 GM/50 ML BAG IV SCH (17:50)
--- NOTE | 2019-08-15 18:12 | Event Note ---
Date: 08/15/19 3 minute FHR deceleration to 75 bpm was auscultated. Pt was found to be lying supine. Turned pt to left lateral, instant recovery to 130 bpm with moderate variability. SVE 1.5/70/-3. MD notified. Decision made for primary LTCS made due to non-reassuring FHR in early labor. Discussed with patient and family.
[2019-08-15] MEDS ORDERED: METOCLOPRAMIDE 10 MG/2 ML INJ IV ONE (18:14)
[2019-08-15] MEDS ORDERED: FAMOTIDINE 20 MG/2 ML INJ IV ONE (18:14)
[2019-08-15] MEDS ORDERED: BICITRA ORAL LIQD 30ML PO ONE (18:14)
[2019-08-15] MEDS ORDERED: HYDROmorphone 1 MG/1 ML INJ IV PRN ×2 (18:35)
[2019-08-15] MEDS ORDERED: PROMETHAZINE 25 MG RECT SUPP PR PRN ×2 (18:35→19:52)
--- NOTE | 2019-08-15 18:35 | Anesthesia Day of Surgery ---
Anesthesia Day of Surgery - Day of Surgery Patient Examined: Yes Patient H&P Reviewed: Yes Patient is NPO: Yes
--- NOTE | 2019-08-15 18:35 | Anesthesia Consultation ---
Anesthesia Consult and Med Hx Date of service: 08/15/19 - Airway Anesthetic Teeth Evaluation: Good ROM Head & Neck: Adequate Mental/Hyoid Distance: Adequate Mallampati Class: Class II Intubation Access Assessment: Good - Pulmonary Exam CTA: Yes - Cardiac Exam Cardiac Exam: RRR - Pre-Operative Health Status ASA Pre-Surgery Classification: ASA2, Emergency Proposed Anesthetic Plan: Spinal - Pulmonary Hx Asthma: No COPD: No Hx Pneumonia: No - Cardiovascular System Hx Hypertension: No - Central Nervous System Hx Seizures: No Hx Psychiatric Problems: No - Endocrine Hx Renal Disease: No Hx End Stage Renal Disease: No Hx Hypothyroidism: No Hx Hyperthyroidism: No - Hematic Hx Sickle Cell Disease: No - Other Systems Hx Alcohol Use: No
[2019-08-15] MEDS ORDERED: DEXMEDETOMIDINE 200 MCG/2 ML VIAL IV ONE (18:41)
[2019-08-15] MEDS ORDERED: fentaNYL-BUPIV 2 MCG/ML-0.125% 200 MCG/100 ML BAG EPIDURAL SCH (19:00)
[2019-08-15] MEDS ORDERED: ceFAZolin/Water 2 GM/20 ML 2 GM/20 ML SYRINGE IV NR (19:00)
[2019-08-15] MEDS ORDERED: WATER FOR IRRIG STERILE 1,500 ML BOTTLE IR ONE (19:00)
[2019-08-15] MEDS ORDERED: SODIUM CHLORIDE 0.9% IRR 1,500 ML BOTTLE IR ONE (19:00)
[2019-08-15] MEDS ORDERED: diphenhydrAMINE 50 MG/ML VIAL ONE (19:27)
[2019-08-15] MEDS ORDERED: KETOROLAC 30 MG/1 ML INJ ONE (19:27)
[2019-08-15] MEDS ORDERED: SENNOSIDES 8.6 MG TAB PO PRN (19:52)
[2019-08-15] MEDS ORDERED: LANOLIN/ZINC/DIMETHICONE (LANSINOH) 7 GM TP PRN (19:52)
[2019-08-15] MEDS ORDERED: WITCH HAZEL/ GLYCERIN PAD TP PRN (19:52)
[2019-08-15] MEDS ORDERED: ACETAMINOPHEN 325 MG TAB PO PRN (19:52)
[2019-08-15] MEDS ORDERED: MAGNESIUM HYDROXIDE (MOM) ORAL LIQD UDC PO PRN (19:52)
[2019-08-15] MEDS ORDERED: MORPHINE 4 MG/1 ML INJ IV PRN (19:52)
[2019-08-15] MEDS ORDERED: SIMETHICONE 80 MG CHEW TAB PO PRN (19:52)
[2019-08-15] MEDS ORDERED: MORPHINE 2 MG/1 ML INJ IV PRN (19:52)
[2019-08-15] MEDS ORDERED: HYDROcodone/ACETAMINOPHEN 5-325 MG TAB PO PRN (19:52)
[2019-08-15] MEDS ORDERED: D5W/LACTATED RINGERS 1,000 ML IV SCH (20:00)
--- NOTE | 2019-08-15 20:03 | Procedure Note ---
OB Delivery Note - Delivery Date of Delivery: 08/15/19 Surgeon: SONALI EDMONDS Glass Toughening Operator: CUCA OBREGON - Section Preop diagnosis: nonreassuring FHR tracing Postop diagnosis: same section procedure: section Disposition: PACU Complications: none Narrative: see op note - Infant A at 1 minute: 8 at 5 minutes: 9 Gender: Male (3289g)
--- NOTE | 2019-08-15 20:08 | Post Anesthesia Evaluation ---
- Post Anesthesia Evaluation Patient Participated: Yes Airway Patent: Yes Stable Respiratory Function: Yes Nausea/Vomiting: No Temp > 96.8F: Yes Pain Manageable: Yes Adequeate Hydration: Yes Anesthesia Complications: No Block Receding Appropriately: Yes Patient on Ventilator: No
--- NOTE | 2019-08-15 20:10 | Operative Report ---
Operative Report Operative Report: DATE OF OPERATION: 08/15/19 PREOPERATIVE DIAGNOSES: 1. Intrauterine gestation at 40+2 weeks, in early labor, 2. NRFHT 3. Failed IOL POSTOPERATIVE DIAGNOSES: 1. Intrauterine gestation at 40+2 weeks,in early labor 2. NRFHT 3. Failed IOL 4. Nuchal cord around left foot Primary low transverse section. SURGEON:Carissa Morejon MD SPEECH AND LANGUAGE SPECIALIST: CUCA OBREGON ANESTHESIA: Spinal COMPLICATIONS: None. ESTIMATED BLOOD LOSS: 600 mL. DRAINS: Heath catheter to the bladder. SPECIMENS TO PATHOLOGY: Placenta top path OPERATIVE FINDINGS: A viable male infant with Apgars of 8 and 9 and birthweight of 3289g was delivered from a cephalic presentation. The cord contained 3 vessels. There was normal anterior fundal placenta. The amniotic fluid was clear. The uterus, fallopian tubes and ovaries were normal. DESCRIPTION OF OPERATION: The patient was brought to the operating suite in stable condition with epidural anesthesia on board and an indwelling catheter in place in the bladder. The patient was placed supine on the operating room table and rolled to her left side with a wedge. The abdomen was prepped and draped in standard fashion for section. After testing with forceps to assure an adequate anesthetic level, the surgery was commenced. We had counseled the patient extensively regarding the risks of the surgery including but not limited to stroke, embolus, phlebitis, pain, infection, hemorrhage, as well as injury to the infant and the internal organs such as the bowel, bladder, blood vessels, nerves, kidneys, ureters and pelvic organs. The patient was aware of the postoperative morbidity issues and recovery timeframes. The patient was aware she can form adhesions, which can result in obstruction of loop of bowel or ureter or chronic pain. She was aware that should she have hemorrhage and require blood transfusion, there was a small chance for exposure to hepatitis or HIV disease. With the scalpel, a Pfannenstiel skin incision was made. Dissection was carried down sharply through the subcutaneous tissues and fascia in a transverse plane with the scalpel, electrocautery and curved Carter scissors. The fascia was sharply freed up superiorly and inferiorly from the underlying rectus muscles, which were bluntly and sharply divided. The peritoneum was entered carefully in a clear space with a curved hemostat. The peritoneal incision was then extended vertically with Metzenbaum scissors. A retractor and bladder blade were placed. A bladder flap was created by incising transversely through the peritoneum and vesicouterine fold and then bluntly dissecting the bladder distally. With the scalpel, a low transverse hysterotomy was commenced. The serosa and myometrium were scored with the scalpel. The uterine cavity was actually entered bluntly with a curved hemostat. The uterine incision was then extended laterally with the electric truck operator's fingers. An intrauterine hand was placed and the head of the infant was brought up out of the pelvis into the uterine incision. With fundal pressure, he was delivered without difficulty. The nasopharynx and oropharynx were suctioned. The cord was doubly clamped and transected. The was then handed off to the nursery personnel. Apgars were good at 8 and 9. A cord pH was obtained, which subsequently revealed a normal value. Further cord blood was collected for routine testing. Intravenous Pitocin and antibiotics were administered. The placenta was manually removed. The uterine cavity was then curetted with a dry sponge and freed of the remaining membranes. The edges of the uterine incision were grasped with Lundy clamps. With the massage and the Pitocin, the uterus began to firm up normally. The uterine incision was then closed in 2 layers of 0 Vicryl sutures. The first suture was placed to the endometrium and myometrium. The second suture was placed through the endopelvic fascia and also reincorporated the bladder flap peritoneum. Peritoneal lavage was then perfo rmed. The pelvis and gutters were irrigated and suctioned and cleared of all blood and clots and amniotic fluid. The uterine incision was reinspected to assure hemostasis. The uterus, tubes and ovaries were inspected and were normal. Once we were satisfied with the hemostasis, attention was turned to closure of the abdominal incision. The peritoneum, muscles and fascia were closed in layers using 0-Vicryl sutures. The subcutaneous tissue was closed with 3-0 plain sutures. The skin was closed with a subcuticular suture of 4-0 Vicryl followed by benzoin, Steri-Strips and a Telfa dressing. The patient was moved to the recovery room in stable condition with the Heath catheter draining clear urine. Instruments, sponge and needle counts were reported as correct. Estimated blood loss was 600 mL. There were no complications.
[2019-08-16] MEDS: KETOROLAC 30 MG/1 ML INJ IV PRN ×2 (01:50→10:23)
[2019-08-16 08:23] LABS: Hematocrit 30.5 % (30.3-42.9); Hemoglobin 10.7 gm/dl (10.1-14.3)
[2019-08-16] MEDS: PRENATAL VIT27-FE FUMARATE-FOLIC ACID VIT TAB PO SCH (10:25)
[2019-08-16] MEDS: FERROUS SULFATE 325 MG TAB PO SCH (10:25)
--- NOTE | 2019-08-16 15:29 | Progress Note ---
Assessment and Plan A: POD#1 s/p primary section at term, Anemia P: Routine postoperative care. Subjective - Subjective Date of service: 08/16/19 Principal diagnosis: s/p primary at term Interval history: Pt with no unusual complaints. Patient reports: appetite normal, voiding normally, pain well controlled, no flatus, no bowel movement, no ambulating normally (minimally ) : doing well Objective - Vital Signs Latest vital signs: Vital Signs Temp Pulse Resp BP BP Pulse Ox 08/16/19 12:05 97.7 F 68 18 106/51 08/16/19 08:55 98.1 F 73 18 112/50 08/16/19 05:13 18 08/16/19 04:44 99.3 F 68 18 104/62 97 08/16/19 01:50 18 08/15/19 22:22 98.6 F 59 L 18 111/76 100 08/15/19 20:50 75 15 153/100 100 08/15/19 20:45 71 20 89/40 100 08/15/19 20:30 71 17 105/62 100 08/15/19 20:15 76 17 90/59 100 08/15/19 20:10 86 17 99/55 100 08/15/19 20:05 98.6 F 83 18 95/65 100 08/15/19 19:15 160 H 44 H 08/15/19 18:25 69 83 L 08/15/19 18:24 87 08/15/19 18:20 64 81 L 08/15/19 18:15 68 87 08/15/19 18:10 42 L 82 L 08/15/19 18:05 116 H 80 L 08/15/19 18:00 63 98 08/15/19 17:18 64 112/63 08/15/19 16:51 97.9 F 16 08/15/19 15:42 81 122/71 Intake and Output 08/16/19 08/16/19 08/16/19 06:59 14:59 22:59 Intake Total 550 360 Output Total 850 400 Balance -300 -40 Intake: Oral 550 360 Output: Urine 850 400 Indwelling Catheter 300 400 Uretheral (Heath) 550 Other: Total, Intake Amount 200 240 Total, Output Amount 300 400 # Voids Void 1 - Exam Breasts: Present: deferred Cardiovascular: Present: Regular rate Lungs: Present: Clear to auscultation Abdomen: Present: soft, abnormal bowel sounds (hypoactive ) Uterus: Present: fundal height at umbilicus Extremities: Present: normal Incision: Present: dressed - Labs Labs: Abnormal lab results 08/15/19 Range/Units 16:56 MCHC 35 H (30-34) %
[2019-08-16] MEDS: oxyCODONE /ACETAMINOPHEN 5-325MG TAB PO PRN ×2 (18:07→23:06)
[2019-08-16] MEDS ORDERED: MEASLES, MUMPS & RUBELLA 12,500 UNIT/0.5 ML VACCINE SUB-Q ONE (19:53)
[2019-08-16] MEDS ORDERED: TETANUS,DIPH,PERTUSS(ACELL) VACCINE 0.5 ML SYRINGE IM ONE (19:53)
[2019-08-16] MEDS: IBUPROFEN 800 MG TAB PO PRN (21:36)
[2019-08-17] MEDS: IBUPROFEN 800 MG TAB PO PRN ×3 (03:19→15:24)
[2019-08-17 04:46] LABS: Hematocrit 28.2 % (30.3-42.9); Hemoglobin 9.7 gm/dl (10.1-14.3)
[2019-08-17] MEDS: oxyCODONE /ACETAMINOPHEN 5-325MG TAB PO PRN ×3 (06:01→21:46)
[2019-08-17] MEDS: PRENATAL VIT27-FE FUMARATE-FOLIC ACID VIT TAB PO SCH (09:25)
[2019-08-17] MEDS: FERROUS SULFATE 325 MG TAB PO SCH (09:25)
--- NOTE | 2019-08-17 18:42 | Progress Note ---
Assessment and Plan A: POD#2 s/p primary section at term, Asymptomatic anemia P: Routine postoperative care. Begin bowel regimen. Subjective - Subjective Date of service: 08/17/19 Principal diagnosis: s/p primary at term Interval history: Pt with no unusual complaints. No overnight events Patient reports: appetite normal, voiding normally, pain well controlled, flatus, ambulating normally, no bowel movement : doing well Objective - Vital Signs Latest vital signs: Vital Signs Temp Pulse Resp BP Pulse Ox 08/17/19 17:11 98.2 F 87 18 112/65 98 08/17/19 08:46 97.5 F L 64 18 106/52 98 08/17/19 06:01 18 08/17/19 03:19 18 08/16/19 23:06 18 08/16/19 21:36 18 - Exam Breasts: Present: deferred Cardiovascular: Present: Regular rate Lungs: Present: Clear to auscultation Abdomen: Present: soft Uterus: Present: fundal height below umbilicus Extremities: Present: edema (trace) Incision: Present: intact - Labs Labs: Abnormal lab results 08/17/19 Range/Units 04:30 Hgb 9.7 L (10.1-14.3) gm/dl Hct 28.2 L (30.3-42.9) %
[2019-08-17] MEDS: MAGNESIUM HYDROXIDE (MOM) ORAL LIQD UDC PO SCH (21:45)
[2019-08-18] MEDS: IBUPROFEN 800 MG TAB PO PRN (01:20)
[2019-08-18] MEDS: MAGNESIUM HYDROXIDE (MOM) ORAL LIQD UDC PO SCH ×2 (01:20→05:07)
[2019-08-18] MEDS: oxyCODONE /ACETAMINOPHEN 5-325MG TAB PO PRN ×2 (03:11→08:38)
[2019-08-18] MEDS: PRENATAL VIT27-FE FUMARATE-FOLIC ACID VIT TAB PO SCH (08:39)
[2019-08-18] MEDS: FERROUS SULFATE 325 MG TAB PO SCH (08:39)
--- NOTE | 2019-08-18 15:49 | Discharge Summary ---
Providers - Providers Date of Admission: 08/15/19 10:21 Date of discharge: 08/18/19 Attending physician: SONALI EDMONDS MD Primary care physician: SONALI EDMONDS MD Hospitalization Reason for admission: active labor Delivery: Procedure: section, primary low transverse Procedure details: Please see operative report. Incision: intact Other procedures: none complications: none Discharge diagnosis: IUP at term delivered [place] baby: male Hospital course: Pt was admitted in labor and went on to have a primary section which she tolerated well. Her postoperative course was uncomplicated. She met discharge criteria on POD#3. She will follow up in 2 wks for incision check. Condition at discharge: Stable Disposition: - TO HOME OR SELFCARE - Discharge Diagnoses (1) Term of male Status: Acute (2) S/P section Status: Acute (3) Anemia Status: Acute Qualifiers: Anemia type: unspecified type Qualified Code(s): D64.9 - Anemia, unspecified (4) Acute on chronic anemia Status: Acute Plan - Discharge Medications Prescriptions: Ferrous Sulfate [Feosol 325 MG tab] 325 mg PO BID #60 tablet Ibuprofen [Motrin] 800 mg PO Q8HR PRN #30 tablet PRN Reason: Pain, Moderate (4-6) oxyCODONE /ACETAMINOPHEN [Percocet 5/325] 1 tab PO Q6HR PRN #40 tablet PRN Reason: Pain - Provider Discharge Summary Activity: routine, no sex for 6 weeks, no heavy lifting 4 weeks, no strenuous exercise Diet: routine Instructions: routine Additional instructions: [] Smoking cessation referral if applicable(refer to patient education folder for contact #) [] Refer to [facility] Booklet Call your doctor immediately for: * Fever > 100.5 * Heavy vaginal bleeding ( >1 pad per hour) * Severe persistent headache * Shortness of breath * Reddened, hot, painful area to leg or breast * Drainage or odor from incision. * Keep incision clean and dry at all times and follow doctor's instructions regarding bathing/showering - Follow up plan Follow up: SONALI EDMONDS MD [Primary Care Provider] - 7 Days (please call to schedule incision check. Please schedule your son's circumcision before he is one month old. )
--- NOTE | 2019-08-18 15:49 | Progress Note ---
Assessment and Plan A: POD#3 s/p primary section at term, Asymptomatic anemia P: Routine postoperative care. Discharge today with follow up in 2 weeks. Subjective - Subjective Date of service: 08/18/19 Principal diagnosis: s/p primary at term Interval history: Pt with no unusual complaints. No overnight events Patient reports: appetite normal, voiding normally, pain well controlled, flatus, ambulating normally, no bowel movement : doing well Objective - Vital Signs Latest vital signs: Vital Signs Temp Pulse Resp BP BP Pulse Ox 08/18/19 08:30 98.2 F 78 20 112/61 08/18/19 03:11 18 08/18/19 01:25 98.4 F 75 18 112/75 98 08/18/19 01:20 18 08/17/19 21:46 18 08/17/19 17:11 98.2 F 87 18 112/65 98 Intake and Output 08/18/19 08/18/19 08/18/19 06:59 14:59 22:59 Intake Total 360 Balance 360 Intake: Oral 360 Other: Total, Intake Amount 240 # Voids Void 1 - Exam Breasts: Present: deferred Cardiovascular: Present: Regular rate Lungs: Present: Clear to auscultation Abdomen: Present: soft Uterus: Present: fundal height below umbilicus Extremities: Present: normal Incision: Present: intact (bullae at right edge of incision where dressing was )
[2019-08-18 17:16] VITALS: BP 113/63
[2019-08-19 13:27] LABS: HIV-1 Antibody Differentiation SEE SCANNED RESULT; HIV-2 Antibody Differentiation SEE SCANNED RESULT
== END 2019-08-18 17:41 | disposition home or self-care (01) | DRG 765 ==
LOC: TRG 10:20 → LD 10:21 → TRG 10:22 → LD 14:44 → OB 23:02
PROVIDERS: ADMIT Obstetrics & Gynecology; ATTEND Obstetrics & Gynecology
PROC: 10D00Z1 Extraction of Products of Conception, Low, Open Approach (ICD-10-PCS; principal; 2019-08-15)
PROC: 3E0334Z Introduction of Serum, Toxoid and Vaccine into Peripheral Vein, Percutaneous Approach (ICD-10-PCS; 2019-08-16)
PROC: 3E0234Z Introduction of Serum, Toxoid and Vaccine into Muscle, Percutaneous Approach (ICD-10-PCS; 2019-08-17)
DX: O76 Abnormality in fetal heart rate and rhythm complicating labor and delivery (principal); O98.52 Other viral diseases complicating childbirth; O99.02 Anemia complicating childbirth; O69.81X0 Labor and delivery complicated by cord around neck, without compression, not applicable or unspecified; B00.9 Herpesviral infection, unspecified; O99.824 Streptococcus B carrier state complicating childbirth; O26.893 Other specified pregnancy related conditions, third trimester; O61.9 Failed induction of labor, unspecified; Z83.3 Family history of diabetes mellitus; Z3A.40 40 weeks gestation of pregnancy; Z37.0 Single live birth; Z79.899 Other long term (current) drug therapy; Z67.41 Type O blood, Rh negative; Z23 Encounter for immunization
CPT/HCPCS: 36415; 76816; 76819; 85014; 85018; 85025; 85027; 85461; 86689; 86706; 86762; 86850; 86900; 86901; 88307; G0378; J0290; J0595; J1200; J1885; J2270; J2405; J2590; J2765; J2790; J3490; J7120